=== PATIENT | male | born 1960 | race Caucasian/White ===

== ENCOUNTER → 2017-01-28 | Day surgery (SDC) | payer MEDICAID ==
[~2017-01-28] VITALS: Ht 180.3 cm; Wt 70.5 kg
[~2017-01-28] MED LIST: AMPICILLIN/SULBAC 3 GM/NS 100 ML IV PRN; ARIP1TAB11 PO; CHLORHEXIDINE GLUCONATE 2 % 1 PACK (2 CLOTHS) TOPICAL PRN; DULO1CAP PO; INSULIN HUMAN REGULAR 1,000 UNITS/10 ML VIAL SQ PRN; KETOROLAC TROMETHAMINE 60 MG/2 ML (IM) VIAL IM ONE; LACTATED RINGER'S 1000 ML INJ 1,000 ML IV ONE; LACTATED RINGER'S 1000 ML IV PRN; LIDOCAINE 1%/EPINEPHrine 1:100,000 SOLN 20 ML VIAL ONE; LORA-474 PO; LORazepam 2 MG/ML VIAL ONE; MELO-1 PO; METOPROLOL TARTRATE 25 MG TAB PO PRN; NEOSTIGMINE 3 MG/3 ML SYR IV ONE; ONDANSETRON HCL 4 MG/2 ML VIAL IV PUSH ONE; PERC10TA27 PO; POVIDONE IODINE 5% (ANTISEPSIS KIT) 4 APPLICATIONS EACH NARE PRN; PROPOFOL 200 MG/20 ML AMP IV ONE; SODIUM CHLORID 0.9% 500 ML IV PRN; TIMO0.5S30 EACH EYE; TIZA4TAB PO; TYLE325T PO; VARE1PAK3 PO; fentaNYL CITRATE 250 MCG/5 ML AMP ONE
[2017-01-28 07:39] VITALS: BP 129/77; PULSE 58; RESP 16; TEMP 98.2; O2SAT 100
--- NOTE | 2017-01-28 09:47 | EKG ---
Date Performed: 01/28/2017 Time Performed: 07:56:30 PTAGE: 56 years EKG: SINUS BRADYCARDIA BORDERLINE ECG NO PREVIOUS TRACING DOCTOR: Kalpesh Taylor Interpretating Date/Time 01/28/2017 09:46:02
[2017-01-28 14:20] VITALS: BP 126/68; PULSE 68; RESP 16; TEMP 97.3; O2SAT 99
--- NOTE | 2017-02-27 15:03 | MP ---
cc: NEDA LUA M.D. DATE OF SURGERY: January 28, [address] Neda Lua. PREOPERATIVE DIAGNOSIS 1. Chronic left submandibular sialoadenitis. 2. Chronic submandibular sialolithiasis. POSTOPERATIVE DIAGNOSIS 1. Chronic left submandibular sialoadenitis. 2. Chronic submandibular sialolithiasis. OPERATION PERFORMED Excision of left submandibular salivary gland and stones. INDICATIONS Documented in the history and physical. DESCRIPTION OF OPERATION The patient was taken to OR #2 and placed in the supine position. Following induction of general anesthesia and intubation a shoulder roll was placed and the patient was positioned for surgery on the left submandibular triangle. The location of the gland was easily identifiable on palpation. A 5 cm horizontal line was then placed on the skin perpendicular to the inferior border of the mandible. This was overlying the inferior margin of the salivary gland. The line was injected with 2% lidocaine with epinephrine 1:100,000. He was then prepped and draped for surgery. The line was incised down to subplatysmal plane exposing superficial layer of deep cervical fascia. This was elevated and sharply penetrated and the gland was immediately encountered. This was very, very densely fibrotic and adherent to all surrounding structures. The fascial attachments of the gland were carefully released on all sides using blunt and bipolar cautery dissection. The facial artery and vein were encountered in the posterior superior aspect of the gland. These were doubly clamped and ligated to further mobilize the gland. The mylohyoid muscle was identified anteriorly and was retracted anteriorly exposing portions of the duct and this was also released with blunt and bipolar cautery dissection. The superior aspect of the gland was greatly enlarged by the presence of stones within the hilum of the gland and in the duct and the duct was densely adherent to the floor of mouth. Blunt and bipolar cautery dissection continued across superiorly until the area of the greatest concentration to the stones was encountered. The duct was incised with a 15 blade at this point and the stones were evacuated to allow greater access to the duct anteriorly. At the junction with the lingual nerve the duct was doubly clamped and ligated and tied with a 2-0 silk suture ligature preserving the lingual nerve and the specimen was then passed off the field. Careful inspection revealed the floor of mouth to be intact. The wound was irrigated and suctioned. Quarter inch Tereso drain was placed in the depths of the wound and closure was begun using 3-0 Vicryl interrupted in the platysma layer, 4-0 Vicryl subcutaneous and 5-0 fast-absorbing plain gut in the skin. A Caret dressing was applied. The procedure was terminated. The patient was reversed from anesthesia and taken to recovery in good condition. There were no complications. Blood loss was 60 mL. MD LAWRENCE Hopkins/JORGE /8:40 AM /3:23 PM
== END | disposition home or self-care (01) ==
LOC: PHSDC 06:15
PROVIDERS: ATTEND Otolaryngology
DX: K11.23 Chronic sialoadenitis (principal); K11.5 Sialolithiasis; G43.909 Migraine, unspecified, not intractable, without status migrainosus; H40.9 Unspecified glaucoma; K21.9 Gastro-esophageal reflux disease without esophagitis; F41.9 Anxiety disorder, unspecified; F32.9 Major depressive disorder, single episode, unspecified; M54.2 Cervicalgia; M54.9 Dorsalgia, unspecified; Z79.891 Long term (current) use of opiate analgesic; Z79.899 Other long term (current) drug therapy
CPT/HCPCS: 00100; 42440; 88307; 93005; J0295; J1885; J2060; J2405; J2710; J3010; J7120; 88305

== ENCOUNTER 2017-02-04 22:16 | Observation (INO) | payer MEDICAID ==
[~2017-02-04] VITALS: Ht 180.3 cm; Wt 70.5 kg
[~2017-02-04 22:16] MED LIST changes: -AMPICILLIN/SULBAC 3 GM/NS 100 ML IV PRN; -ARIP1TAB11 PO; -CHLORHEXIDINE GLUCONATE 2 % 1 PACK (2 CLOTHS) TOPICAL PRN; -INSULIN HUMAN REGULAR 1,000 UNITS/10 ML VIAL SQ PRN; +IOHEXOL 350 MG/ML 10 ML VIAL (for RAD DIAG) IV PUSH ONE; -KETOROLAC TROMETHAMINE 60 MG/2 ML (IM) VIAL IM ONE; -LACTATED RINGER'S 1000 ML INJ 1,000 ML IV ONE; -LACTATED RINGER'S 1000 ML IV PRN; -LIDOCAINE 1%/EPINEPHrine 1:100,000 SOLN 20 ML VIAL ONE; -LORazepam 2 MG/ML VIAL ONE; -MELO-1 PO; -METOPROLOL TARTRATE 25 MG TAB PO PRN; -NEOSTIGMINE 3 MG/3 ML SYR IV ONE; -ONDANSETRON HCL 4 MG/2 ML VIAL IV PUSH ONE; -POVIDONE IODINE 5% (ANTISEPSIS KIT) 4 APPLICATIONS EACH NARE PRN; -PROPOFOL 200 MG/20 ML AMP IV ONE; -SODIUM CHLORID 0.9% 500 ML IV PRN; -VARE1PAK3 PO; -fentaNYL CITRATE 250 MCG/5 ML AMP ONE
[2017-02-04 22:21] VITALS: BP 146/87; PULSE 75; RESP 16; TEMP 98.5; O2SAT 100
[2017-02-04] MEDS ORDERED: MORPHINE SULFATE 4 MG/ML INJ IV PUSH ONE (22:30)
[2017-02-04] MEDS ORDERED: CLINDAMYCIN INJ 600 MG in SODIUM CHLORIDE 0.9% INJ 100 ML IV ONE (22:30)
[2017-02-04] MEDS ORDERED: ONDANSETRON HCL 4 MG/2 ML VIAL IV PUSH ONE (22:45)
[2017-02-04 23:00] VITALS: BP 116/81; PULSE 75; RESP 18; O2SAT 96
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
[2017-02-04 23:27] LABS: AUTOMATED NEUTROPHIL # 6.4 TH/MM3 (1.8-7.7); BASOPHIL # 0.1 TH/MM3 (0-0.2); BASOPHIL % 0.6 % (0.0-2.0); EOSINOPHIL # 0.3 TH/MM3 (0-0.4); EOSINOPHIL % 2.5 % (0.0-4.0); HEMATOCRIT 40.3 % (39.0-51.0); LYMPH % 21.3 % (9.0-44.0); LYMPHOCYTE # 2.1 TH/MM3 (1.0-4.8); MEAN CELL VOLUME 86.5 FL (80.0-100.0); MEAN CORPUSCULAR HGB CONC 33.5 % (32.0-36.0); MONO % 10.8 % (0.0-8.0); NEUT % 64.8 % (16.0-70.0); PLATELET COUNT 304 TH/MM3 (150-450); RED BLOOD COUNT 4.66 MIL/MM3 (4.50-5.90); RED CELL DISTRIBUTION WIDTH 13.9 % (11.6-17.2)
[2017-02-04 23:30] LABS: HEMO FLAGS DIFF FINAL
[2017-02-04 23:44] LABS: CHLORIDE 102 MEQ/L (98-107); SODIUM (NA) 134 MEQ/L (136-145)
[2017-02-04 23:48] LABS: ANION GAP 7 MEQ/L (5-15); BICARBONATE 25.4 MEQ/L (21.0-32.0); BLOOD UREA NITROGEN 14 MG/DL (7-18)
[2017-02-04 23:51] LABS: ALT (GPT) 17 U/L (12-78); AST (GOT) 12 U/L (15-37); GLOMERULAR FILTRATION RATE 112 ML/MIN (>89)
[2017-02-04 23:52] LABS: TOTAL BILIRUBIN ADULT 0.3 MG/DL (0.2-1.0)
[2017-02-04 23:54] LABS: ALKALINE PHOSPHATASE 44 U/L (45-117)
[2017-02-05 00:20] VITALS: BP 113/76; PULSE 78; RESP 18; O2SAT 97
--- NOTE | 2017-02-05 00:38 | RADRPT ---
EXAM DATE/TIME: 02/05/2017 00:08 [facility] COMPARISON: No previous studies available for comparison. INDICATIONS : Left neck pain and swelling with redness post submandibular gland surgery one week ago. IV CONTRAST: 100 cc Omnipaque 350 (iohexol) IV RADIATION DOSE: 12.64 CTDIvol (mGy) MEDICAL HISTORY : None SURGICAL HISTORY : left submandibular gland ENCOUNTER: Initial ACUITY: 2 days PAIN SCALE: 10/10 LOCATION: Left neck submandibular TECHNIQUE: Volumetric scanning of the neck was performed. Using automated exposure control and adjustment of th e mA and/or kV according to patient size, radiation dose was kept as low as reasonably achievable to obtain optimal diagnostic quality images. DICOM format image data is available electronically for r eview and comparison. FINDINGS: There are at least 4 calculi in the expected location of the left submandibular duct ranging in size from 3-5 mm. There is a mild rim-enhancing fluid collection in the left submandibular region measuring up to 3.4 x 2 cm which contain small locules of air and is suspicious for a left submandibular abscess. There is surrounding cellulitis and mildly enlarged left submandibular lymph nodes. No airway obstructing lesions or foreign bodies. Right submandibular gland is intact. Moderate anesth etic changes both carotid bifurcations. Paranasal sinuses are clear. CONCLUSION: 1. Rim-enhancing fluid collection in the left submandibular region containing small locules of air mo st characteristic of a submandibular abscess with surrounding cellulitis and soft tissue swelling. Th is process likely involves the left submandibular gland if still present. There is reported history o f submandibular gland surgery recently. Mildly enlarged left submandibular lymph nodes present. 2. At least 4 calculi are noted in the expected location of the left submandibular duct ranging in si ze from 3-5 mm. Ariel Nicholas MD on February 05, 2017 at 0:30 Board Certified Radiologist. This report was verified electronically.
--- NOTE | 2017-02-05 01:02 | PD ---
Physical Exam Time Seen by Provider: 00:[address] Conway left this patient with me to check the CT and make a disposition. Data Data Last Documented VS Vital Signs Date Time Temp Pulse Resp B/P (MAP) Pulse Ox O2 Delivery O2 Flow Rate FiO2 02/04/17 23:04 16 02/04/17 22:21 98.5 75 146/87 (106) 100 Orders Orders Iv Access Insert/Monitor (02/04/17 22:29) Complete Blood Count With Diff (02/04/17 22:29) Comprehensive Metabolic Panel (02/04/17 22:29) Morphine Inj (Morphine Inj) (02/04/17 22:30) Clindamycin Inj (Cleocin Inj) (02/04/17 22:30) Ondansetron Inj (Zofran Inj) (02/04/17 22:45) Iohexol 350 Inj (Omnipaque 350 Inj) (02/04/17 00:18) Ct Soft Tiss Neck W Iv Cont (02/05/17 00:10) Labs Laboratory Tests Test 02/04/17 23:00 White Blood Count 10.0 TH/MM3 Red Blood Count 4.66 MIL/MM3 Hemoglobin 13.5 GM/DL Hematocrit 40.3 % Mean Corpuscular Volume 86.5 FL Mean Corpuscular Hemoglobin 29.0 PG Mean Corpuscular Hemoglobin Concent 33.5 % Red Cell Distribution Width 13.9 % Platelet Count 304 TH/MM3 Mean Platelet Volume 6.8 FL Neutrophils (%) (Auto) 64.8 % Lymphocytes (%) (Auto) 21.3 % Monocytes (%) (Auto) 10.8 % Eosinophils (%) (Auto) 2.5 % Basophils (%) (Auto) 0.6 % Neutrophils # (Auto) 6.4 TH/MM3 Lymphocytes # (Auto) 2.1 TH/MM3 Monocytes # (Auto) 1.1 TH/MM3 Eosinophils # (Auto) 0.3 TH/MM3 Basophils # (Auto) 0.1 TH/MM3 CBC Comment DIFF FINAL Differential Comment Blood Urea Nitrogen 14 MG/DL Creatinine 0.73 MG/DL Random Glucose 96 MG/DL Total Protein 7.3 GM/DL Albumin 3.6 GM/DL Calcium Level 8.7 MG/DL Alkaline Phosphatase 44 U/L Aspartate Amino Transf (AST/SGOT) 12 U/L Alanine Aminotransferase (ALT/SGPT) 17 U/L Total Bilirubin 0.3 MG/DL Sodium Level 134 MEQ/L Potassium Level 4.0 MEQ/L Chloride Level 102 MEQ/L Carbon Dioxide Level 25.4 MEQ/L Anion Gap 7 MEQ/L Estimat Glomerular Filtration Rate 112 ML/MIN [facility] Medical Record Reviewed: Yes Supervised Visit with LIZETTE: Yes Interpretation(s) The CBC is normal. The complete metabolic profile shows a sodium 134 but is otherwise normal. The soft tissue neck CT with IV contrast shows at least 4 calculi in the left submandibular duct ranging in size from 3-5 mm. There is a ring enhanced fluid collection in the left submandibular region measuring 3.4 x 2 cm which contained small it feels a and is likely a left some mandibular abscess. There is surrounding cellulitis and mildly enlarged left submandibular lymph nodes. Differential Diagnosis Submandibular abscess, developing Ion's angina-unlikely, cellulitis submandibular area, electrolyte disorder, hypo-/hyperglycemia, intractable pain , intractable vomiting Narrative Course The patient has intractable pain and vomiting from the submandibular swelling. The pus was into his mouth and this causes him to vomit. He also has a submandibular abscess. I discussed this with Dr. Estevez and he will see the patient in the morning. Condition: Stable Gonsalo Krause MD Feb 05, 2017 01:02
[2017-02-05] MEDS ORDERED: ONDANSETRON HCL 4 MG/2 ML VIAL IV ONE (01:15)
[2017-02-05] MEDS ORDERED: HYDROmorphone HCL PF 1 MG/ML VIAL IVP ONE ×2 (01:15→02:30)
[2017-02-05] MEDS ORDERED: DEXAMETHASONE SOD PHOS 20 MG/5 ML VIAL IV PUSH ONE (01:15)
[2017-02-05] MEDS ORDERED: cefTRIAXone INJ 1,000 MG in SODIUM CHLORIDE 0.9% INJ 100 ML IV ONE (01:15)
[2017-02-05] MEDS ORDERED: NALOXONE HCL 0.4 MG/ML AMP IV PRN (02:15)
[2017-02-05] MEDS ORDERED: SODIUM CHLORIDE 0.9% FLUSH 10 ML FLUSH IV FLUSH PRN (02:15)
[2017-02-05] MEDS ORDERED: MORPHINE SULFATE 4 MG/ML INJ IV PUSH PRN (02:15)
[2017-02-05] MEDS ORDERED: ONDANSETRON HCL 4 MG/2 ML VIAL IVP PRN (02:15)
[2017-02-05] MEDS ORDERED: ACETAMINOPHEN 325 MG TAB PO PRN (02:15)
[2017-02-05 02:26] VITALS: BP 112/64
[2017-02-05] MEDS ORDERED: METOCLOPRAMIDE HCL 10 MG/2 ML VIAL IVS ONE (02:30)
[2017-02-05 02:37] VITALS: BP 119/68; PULSE 70; RESP 16; O2SAT 99
[2017-02-05 04:00] VITALS: BP 116/76; PULSE 75; RESP 18; TEMP 97.4; O2SAT 98
[2017-02-05] MEDS ORDERED: CLINDAMYCIN INJ 600 MG in SODIUM CHLORIDE 0.9% INJ 100 ML IV SCH (05:00)
[2017-02-05] MEDS ORDERED: DEXAMETHASONE SOD PHOS 4 MG/ML VIAL IV PUSH SCH (06:00)
[2017-02-05 08:00] VITALS: BP 102/85; PULSE 86; RESP 20; TEMP 97.6; O2SAT 96
[2017-02-05] MEDS ORDERED: SODIUM CHLORIDE 0.9% FLUSH 10 ML FLUSH IV FLUSH SCH (09:00)
--- NOTE | 2017-02-05 10:03 | PD.CONS ---
History of Present Illness Service ENT Consult Requested By ED Reason for Consult Left neck post op infection. Primary Care Physician Adryan Ortega MD Diagnoses: History of Present Illness 56 year old male post excision of left submandibular gland due to stones and infection on 01/28/17. Had been doing well, but developed pain and swelling. Last night came in also with nausea. Admitted on iv steroids and antibiotics overnight. Swelling down and much improved now. Feels well and wants to go home. Still some pain complaints. Review of Systems Ears, nose, mouth, throat: COMPLAINS OF: Throat pain, DENIES: Vertigo, Nasal discharge, Oral lesions, Hoarseness, Odynophagia Past Family Social History Allergies: Coded Allergies: No Known Allergies (Verified , 02/04/17) Physical Exam Vital Signs Vital Signs Date Time Temp Pulse Resp B/P (MAP) Pulse Ox O2 Delivery O2 Flow Rate FiO2 02/05/17 08:00 97.6 86 20 102/85 (91) 96 02/05/17 07:00 18 02/05/17 04:00 97.4 75 18 116/76 (89) 98 02/05/17 02:37 70 16 119/68 (85) 99 Room Air 02/05/17 02:26 68 16 112/64 (80) 98 02/05/17 01:47 16 02/05/17 00:20 78 18 113/76 (88) 97 Room Air 02/04/17 23:04 16 02/04/17 23:00 75 18 02/04/17 23:00 75 18 116/81 (93) 96 Room Air 02/04/17 22:21 98.5 75 16 146/87 (106) 100 Physical Exam GENERAL: This is a well-nourished, well-developed patient, in no apparent distress. SKIN: No rashes, ecchymoses or lesions. Cool and dry. HEAD: Atraumatic. Normocephalic. No temporal or scalp tenderness. EYES: Pupils equal round and reactive. Extraocular motions intact. No scleral icterus. No injection or drainage. ENT: Nose without bleeding, purulent drainage or septal hematoma. Throat without erythema, tonsillar hypertrophy or exudate. Uvula midline. Airway patent. NECK: Trachea midline. Left submandibular erythema and edema. Much improved from yesterday. CARDIOVASCULAR: Regular rate. RESPIRATORY: Chest expansion equal bilaterally. GASTROINTESTINAL: Abdomen soft, non-tender, nondistended. No guarding. MUSCULOSKELETAL: Extremities without clubbing, cyanosis, or edema. NEUROLOGICAL: Awake and alert. Laboratory Laboratory Tests Test 02/04/17 23:00 White Blood Count 10.0 Red Blood Count 4.66 Hemoglobin 13.5 Hematocrit 40.3 Mean Corpuscular Volume 86.5 Mean Corpuscular Hemoglobin 29.0 Mean Corpuscular Hemoglobin Concent 33.5 Red Cell Distribution Width 13.9 Platelet Count 304 Mean Platelet Volume 6.8 Neutrophils (%) (Auto) 64.8 Lymphocytes (%) (Auto) 21.3 Monocytes (%) (Auto) 10.8 Eosinophils (%) (Auto) 2.5 Basophils (%) (Auto) 0.6 Neutrophils # (Auto) 6.4 Lymphocytes # (Auto) 2.1 Monocytes # (Auto) 1.1 Eosinophils # (Auto) 0.3 Basophils # (Auto) 0.1 CBC Comment DIFF FINAL Differential Comment Blood Urea Nitrogen 14 Creatinine 0.73 Random Glucose 96 Total Protein 7.3 Albumin 3.6 Calcium Level 8.7 Alkaline Phosphatase 44 Aspartate Amino Transf (AST/SGOT) 12 Alanine Aminotransferase (ALT/SGPT) 17 Total Bilirubin 0.3 Sodium Level 134 Potassium Level 4.0 Chloride Level 102 Carbon Dioxide Level 25.4 Anion Gap 7 Estimat Glomerular Filtration Rate 112 Result Diagram: 02/04/17 2300 02/04/172299 Imaging CT pre and post op reviewed. Assessment and Plan Assessment and Plan Had excision of left submandibular gland for chronic infection, inflammation and stones. Developed post op infection, was on Keflex. Much better after iv Decadron and Clindamycin. CT conssitent with post op appearance. Does not need procedure at this time. Discharge on Clindamycin, Medrol and Percocet. Scripts written, on chart. Follow with Dr Lua as planned. Ariel Estevez MD Feb 05, 2017 10:02
--- NOTE | 2017-02-10 18:02 | HHI.PR ---
Addendum To [facility] Progress Not Reason for addendum: Additonal documentation ASSESSMENT ASSESSMENT HPI: 56-year-old male who underwent excision of left submandibular gland due to stones and infection on 01/28/17. Presented secondary to pain and swelling. Patient denies any other symptoms. Denies any chest pain, shortness of breath, nausea, vomiting, lightheadedness, dizziness, fevers, chills. Patient says he would like to leave the hospital. He is dressed and ready to leave. Has already been cleared for discharge by maxillofacial surgery. Past medical, surgical, family, social history reviewed in chart as documented. Alert and oriented 3. Appears comfortable. Walking around room. Anxious to leave. Exam with left mandibular fullness. Erythematous nodule. No drainage. Regular rate and rhythm. No murmurs, rubs, gallops, clicks. Breathing comfortably. Lungs clear to auscultation bilaterally Moving all extremities well. Strength grossly intact. a/p ///Left mandibular gland suspicion for infection No fevers. No leukocytosis. Reported to have some nausea on chart review. but denied upon my questioning. Maxillofacial surgery consulted, notes that ct scan here is consistent with postoperative appearance. Patient will be discharged on clindamycin, Medrol, Percocet, which have been written by maxillofacial surgeon. //Mild hyponatremia. Sodium 134. Possibly secondary to pain. Follow-up with primary care. Patient was discharged home in good condition. Activity ad eli. diet soft. Please see discharge medication reconciliation for medication list. In addition , maxillofacial surgery has prescribed clindamycin, Medrol, Percocet. Follow- up with Maxillofacial surgery, primary care. Enrique Stuart MD Feb 10, 2017 18:02
[2017-04-03] MEDS ORDERED: ARIP1TAB11 PO (09:16)
[2017-04-03] MEDS ORDERED: LORA-474 PO (09:28)
[2017-04-03] MEDS ORDERED: MELO-1 PO (09:28)
== END 2017-02-05 10:40 | disposition home or self-care (01) ==
LOC: PHED 22:16 → INTOOBSV 02-05 01:20 → PHEDA 02-05 01:20 → PH3A 02-05 02:52
PROVIDERS: ADMIT Internal Medicine; ATTEND Internal Medicine
DX: K12.2 Cellulitis and abscess of mouth (principal); T81.4XXA Infection following a procedure, initial encounter; E87.1 Hypo-osmolality and hyponatremia
CPT/HCPCS: 70491; 80053; 85025; 96365; 96366; 96375; 99285; G0378; J0696; J1100; J1170; J2270; J2405; J2765; Q9967

== ENCOUNTER 2017-07-05 16:46 | Emergency (ER) | payer MEDICAID ==
[~2017-07-05] VITALS: Ht 180.3 cm; Wt 70.0 kg
[~2017-07-05 16:46] MED LIST changes: +ARIP1TAB11 PO; +CLIN300C5 PO; -DULO1CAP PO; -IOHEXOL 350 MG/ML 10 ML VIAL (for RAD DIAG) IV PUSH ONE; +MELO15TA20 PO; -TIZA4TAB PO
[2017-07-05 16:48] VITALS: BP 156/94; PULSE 92; RESP 18; TEMP 98.4; O2SAT 96
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
[2017-07-05] MEDS ORDERED: DEXAMETHASONE SOD PHOS 4 MG/ML VIAL IV PUSH ONE (17:15)
[2017-07-05] MEDS ORDERED: SODIUM CHLOR 0.9% 1000 ML INJ 1,000 ML IV ONE (17:15)
[2017-07-05 17:34] LABS: AUTOMATED NEUTROPHIL # 9.5 TH/MM3 (1.8-7.7); BASOPHIL % 0.1 % (0.0-2.0); EOSINOPHIL # 0.1 TH/MM3 (0-0.4); EOSINOPHIL % 0.7 % (0.0-4.0); HEMATOCRIT 42.3 % (39.0-51.0); HEMOGLOBIN 14.3 GM/DL (13.0-17.0); LYMPH % 13.9 % (9.0-44.0); LYMPHOCYTE # 1.8 TH/MM3 (1.0-4.8); MEAN CELL VOLUME 86.3 FL (80.0-100.0); MEAN CORPUSCULAR HEMOGLOBIN 29.2 PG (27.0-34.0); MEAN CORPUSCULAR HGB CONC 33.9 % (32.0-36.0); MEAN PLATELET VOLUME 6.6 FL (7.0-11.0); MONO % 10.6 % (0.0-8.0); MONOCYTE # 1.4 TH/MM3 (0-0.9); NEUT % 74.7 % (16.0-70.0); PLATELET COUNT 246 TH/MM3 (150-450); RED CELL DISTRIBUTION WIDTH 14.4 % (11.6-17.2); WHITE BLOOD COUNT 12.8 TH/MM3 (4.0-11.0)
[2017-07-05 17:54] LABS: ALBUMIN 4.3 GM/DL (3.4-5.0); AST (GOT) 23 U/L (15-37); BICARBONATE 27.6 MEQ/L (21.0-32.0); BLOOD UREA NITROGEN 10 MG/DL (7-18); CALCIUM 8.9 MG/DL (8.5-10.1); CHLORIDE 101 MEQ/L (98-107); CREATININE 0.83 MG/DL (0.60-1.30); GLOMERULAR FILTRATION RATE 96 ML/MIN (>89); GLUCOSE,RANDOM 106 MG/DL (74-106); SODIUM (NA) 135 MEQ/L (136-145)
[2017-07-05 17:57] LABS: ALKALINE PHOSPHATASE 48 U/L (45-117); ALT (GPT) 22 U/L (12-78); TOTAL BILIRUBIN ADULT 0.6 MG/DL (0.2-1.0); TOTAL PROTEIN 7.9 GM/DL (6.4-8.2)
[2017-07-05] MEDS ORDERED: IOHEXOL 350 MG/ML 10 ML VIAL (for RAD DIAG) IVCONTRAST ONE (18:44)
--- NOTE | 2017-07-05 18:51 | RADRPT ---
EXAM DATE/TIME: 07/05/2017 18:16 [facility] COMPARISON: CT SOFT TISSUE NECK W CONTRAST, February 05, 2017, 0:08. INDICATIONS : Left neck swelling with dysphagia; patient had surgery six months ago for salivary stones. IV CONTRAST: 72 cc Omnipaque 350 (iohexol) IV RADIATION DOSE: 15.46 CTDIvol (mGy) MEDICAL HISTORY : None SURGICAL HISTORY : neck surgery for salivary stones ENCOUNTER: Initial ACUITY: 3 days PAIN SCALE: 7/10 LOCATION: Left neck TECHNIQUE: Volumetric scanning of the neck was performed. Using automated exposure control and adjustment of th e mA and/or kV according to patient size, radiation dose was kept as low as reasonably achievable to obtain optimal diagnostic quality images. DICOM format image data is available electronically for r eview and comparison. FINDINGS: NASOPHARYNX: The nasopharyngeal airway has a normal configuration. No mucosal thickening or mass is seen. OROPHARYNX: The intrinsic muscles of the tongue are symmetric. The tonsillar pillars are intact. The prevertebr al soft tissues are not thickened. LARYNX: The supraglottic, glottic, and infraglottic structures are intact. PARAPHARYNGEAL: The parapharyngeal space is intact. SALIVARY GLANDS: Right salivary glands are normal. Multiple stones are again seen along the left submandibular duct ra nging in size from 2 mm to 6 mm. There are 4 calculi seen. There is some prominence of the left subma ndibular duct and adjacent soft tissues. No abscess. Left submandibular lymph node measures 1.5 x 0.8 cm. LYMPH NODES: No enlarged or necrotic-appearing nodes. THYROID: Homogeneous enhancement without evidence of nodule. BONES: Unremarkable. CONCLUSION: 1. Several left submandibular duct calculi. Slight inflammatory changes but no abscess or fluid colle ction. Walter Boone MD on July 05, 2017 at 18:47 Board Certified Radiologist. This report was verified electronically.
[2017-07-05] MEDS ORDERED: TRAM50TA PO (19:01)
[2017-07-05] MEDS ORDERED: AUGM875T3 PO (19:01)
[2017-07-05] MEDS ORDERED: CLEO300C2 PO (19:06)
[2017-07-05] MEDS ORDERED: AMPICILLIN-SULBACTAM INJ 3 GM in SODIUM CHLORIDE 0.9% INJ 100 ML IV ONE (19:15)
[2017-07-05] MEDS ORDERED: CLINDAMYCIN 600 MG/NS PREMIX 50 ML IV ONE (19:15)
[2017-07-05] MEDS ORDERED: traMADol HCL 50 MG TAB PO ONE (19:15)
== END 2017-07-05 19:36 | disposition home or self-care (01) ==
LOC: NEPC 16:46
DX: K11.5 Sialolithiasis (principal); F32.9 Major depressive disorder, single episode, unspecified; F41.9 Anxiety disorder, unspecified; F12.90 Cannabis use, unspecified, uncomplicated; F17.200 Nicotine dependence, unspecified, uncomplicated
CPT/HCPCS: 70491; 80053; 83605; 85025; 87040; 96361; 96374; 96375; 99285; J1100; J7030; Q9967